=== PATIENT | female | born 2000 | race Caucasian/White ===

== ENCOUNTER 2019-05-09 15:10 | Emergency (ER) | payer MEDICAID ==
[~2019-05-09] VITALS: Ht 167.6 cm; Wt 91.0 kg
[2019-05-09 16:39] VITALS: BP 127/88
== END 2019-05-09 19:21 | disposition left against medical advice (07) ==
LOC: ER 15:10
DX: R19.7 Diarrhea, unspecified (principal); Z53.21 Procedure and treatment not carried out due to patient leaving prior to being seen by health care provider